=== PATIENT | female | born 1940 | race Hispanic/Latino ===

== ENCOUNTER 2017-05-26 14:43 | Outpatient (CLI) | payer MEDICARE ==
--- NOTE | 2017-05-26 15:37 | Mammography Report ---
Right mammogram: Left mastectomy. Routine views demonstrate heterogeneously dense breast pattern. No focal mass, architectural distortion, or suspicious calcification. The findings are unchanged compared to prior exam in May 2015. CAD used. Impression: Stable right breast mammogram post left mastectomy. Recommendation: Annual mammogram followup. BI-RADS CATEGORY: 1 = Negative ACR BI-RADS MAMMOGRAPHIC CODES: 0 = Needs additional imaging evaluation; 1 = Negative; 2 = Benign; 3 = Probably benign; 4 = Suspicious; 5 = Malignant; 6 = Known biopsy-proven malignancy COMMENT: 1. Dense breast tissue, i.e., adenosis, fibrocystic changes, etc., may obscure an underlying neoplasm. 2. Approximately 10% of cancers are not detected with mammography. 3. A negative mammography report should not delay biopsy if a clinically suspicious mass is present.
== END 2017-05-26 14:44 | disposition home or self-care (01) ==
LOC: SPVWC 14:43
PROVIDERS: ATTEND Internal Medicine Hematology & Oncology
DX: Z12.31 Encounter for screening mammogram for malignant neoplasm of breast (principal); Z90.12 Acquired absence of left breast and nipple
CPT/HCPCS: G0202-52

== ENCOUNTER 2020-12-26 15:38 | Outpatient (CLI) | payer MEDICARE ==
--- NOTE | 2020-12-26 17:17 | Ultrasound Report ---
ULTRASOUND BREAST LEFT LIMITED, 12/26/2020 CLINICAL INFORMATION / INDICATION: LEFT BREAST PAIN. TECHNIQUE: Targeted ultrasound evaluation was performed of the area of interest. COMPARISON: None. No recent mammograms are available. FINDINGS: Sonographic evaluation of the left breast in the upper outer quadrant, corresponding to patient's are a of pain does not reveal any significant sonographic abnormality. No mass, cyst, or suspicious area of shadowing is noted. A left breast implant is visualized and without appreciable abnormality. IMPRESSION: No sonographic evidence of malignancy. No sonographic correlate for left breast pain. Cli nical correlation is recommended. Follow up recommendation: Clinical correlation BI-RADS Category 2: Benign. A normal or "negative" report should not preclude biopsy or follow-up of a clinically suspicious find ing. Signer Name: Lina Carroll MD Signed: 12/26/2020 5:13 PM Workstation Name: [facility]
--- NOTE | 2020-12-27 09:35 | XRay Report ---
RIGHT SHOULDER 3 VIEWS INDICATION: Right shoulder pain. COMPARISON: None. IMPRESSION: Borderline to mild osteopenia is suspected. No acute osseous injury or bone lesion is d etected. 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 The soft tissues are unremarkable. LEFT KNEE 3 VIEWS INDICATION: LEFT KNEE PAIN. COMPARISON: None. IMPRESSION: Borderline to mild osteopenia is suspected. No acute osseous or soft tissue abnormality. Mild osteoarthritic changes are identified in the medial compartment and patellofemoral compartmen t. Small joint effusion is identified on the lateral image. Chronic appearing calcifications are iden tified at the insertion site of the quadriceps tendon on the superior patella. Signer Name: Sarmad Lord Jr, MD Signed: 12/27/2020 9:31 AM Workstation Name: [id number]
== END 2020-12-26 15:39 | disposition home or self-care (01) ==
LOC: SPVWC 15:38
PROVIDERS: ATTEND Internal Medicine Hematology & Oncology
DX: C50.419 Malignant neoplasm of upper-outer quadrant of unspecified female breast (principal); M19.011 Primary osteoarthritis, right shoulder; M17.12 Unilateral primary osteoarthritis, left knee; M25.462 Effusion, left knee